=== PATIENT | female | born 1985 | race Caucasian/White ===

== ENCOUNTER 2019-09-13 09:18 | Emergency (ER) | payer OTHER ==
[2019-09-13] MEDS ORDERED: Ondansetron PF 4 MG/2 ML Vial ONE ×2 (10:06→12:24)
[2019-09-13] MEDS ORDERED: Morphine 2 MG/ML SYRINGE ONE ×2 (10:06→12:24)
[2019-09-13 10:12] LABS: Bilirubin Negative (Negative); Blood, Urine Trace (Negative); Clarity Turbid (Clear); Glucose, Urine (Dipstick) Normal (Negative); Leukocyte 25 Leu/uL (Negative); Nitrite Negative (Negative); Pregnancy Test - Urine (BHCG) Negative (Negative); Pregu Control Background? CLEAR/WHITE (CLR/WHITE); Pregu Control Bar Appear? YES (CONTROL BAR); Protein, Urine (Dipstick) Negative (Neg-Trace); Specific Gravity 1.013 (1.002-1.036); Squamous Epithelial 0-3 HPF (0-3); Urobilinogen Normal mg/dL (Less than 2); WBC/HPF 0-3 HPF (0-3)
[2019-09-13 10:13] LABS: Bacteria/HPF 1+ HPF (None Seen)
[2019-09-13 10:29] LABS: #Basophils 0.1 thou/uL (0.0-0.2); #Eosinphils 0.1 thou/uL (0.0-0.7); #Lymphocytes 2.3 thou/uL (1.20-3.40); #Monocytes 0.4 thou/uL (0.11-0.59); #Neutrophils 4.6 thou/uL (1.40-6.50); %Basophils 0.7 % (0.0-1.0); %Eosinophils 1.2 % (0.0-10.0); %Lymphocytes 30.4 % (21.0-51.0); %Monocytes 5.5 % (0.0-10.0); %Neutrophils 62.2 % (42.0-75.0); Hemoglobin 14.6 g/dL (12.0-16.0); Mean Corpuscular HGB CONC 32.1 g/dL (32.0-36.0); Mean Corpuscular Hemoglobin 27.6 pg (27.0-31.0); Mean Corpuscular Volume 86.1 fL (78.0-98.0); Mean Platelet Volume 8.4 fL (7.4-10.4); Platelet Count 284 thou/uL (130-400); RBC Distribution Width 11.3 % (11.5-14.5); White Blood Cell (WBC) Count 7.4 thou/uL (4.8-10.8)
--- NOTE | 2019-09-13 10:31 | RAD ---
Chest AP view INDICATION: Chest pain with nausea vomiting COMPARISON: October 08, 2016 FINDINGS: Lungs:The lungs are clear Cardiac silhouette:The cardiomediastinal silhouette appears within normal limits. Pulmonary vasculature:Normal Pleural spaces:No pleural effusion or pneumothorax is demonstrated. Upper abdomen:No abnormality seen. Osseous structures: No acute osseous abnormality. Additional findings:None. IMPRESSION: No acute cardiopulmonary abnormality.
[2019-09-13 10:47] LABS: ALT (SGPT) 12 U/L (8-55); AST (SGOT) 15 U/L (5-34); Albumin 4.3 g/dL (3.5-5.0); Alkaline Phosphatase 62 U/L (40-110); Anion Gap 12 mmol/L (10-20); BUN (Urea Nitrogen) 11 mg/dL (7.0-18.7); Bilirubin, Total 0.2 mg/dL (0.2-1.2); Calc. Creatinine Clearance 0 mL/min (70-130); Calcium 9.1 mg/dL (7.8-10.44); Carbon Dioxide 24 mmol/L (22-29); Chloride 106 mmol/L (98-107); Estimated GFR-MDRD 74; Globulin 3.5 g/dL (2.4-3.5); Glucose 89 mg/dL (70-105); Lipase 23 U/L (8-78); Potassium 3.7 mmol/L (3.5-5.1); Protein, Total 7.8 g/dL (6.0-8.3); Sodium 138 mmol/L (136-145)
--- NOTE | 2019-09-13 12:34 | CT ---
CT ABDOMEN WITH CONTRAST CT PELVIS WITH CONTRAST: DATE: 09/13/2019 HISTORY: 34-year-old female with right lower quadrant abdominal pain with nausea and emesis. TECHNIQUE: IV injection of iodinated contrast media: Administered Oral contrast media:Administered FINDINGS: Liver: Normal. Spleen: Normal. Pancreas: Normal. Adrenals: Normal. Kidneys: Normal. Ureters: No dilation. Bladder: No pathology identified. Abdominal aorta: No aneurysm or dissection. Small bowel: No dilation. Colon: No adjacent fat stranding. Appendix: Normal. Free air: None. Free fluid: None. There is a partially calcified approximately 1.5 x 1.5 x 1 cm exophytic, pedunculated well-circumscri bed mass protruding from the left anterior uterine fundus. IMPRESSION: 1. Normal appendix. 2. Incidental finding of small uterine leiomyoma. 3. Otherwise normal.
[2019-09-13] MEDS ORDERED: Iopamidol 370 76% 50 ML VIAL FS ONE (13:20)
[2019-09-13] MEDS ORDERED: ISOVUE-370 76%-LOCM 1 ML ONE (13:20)
--- NOTE | 2019-09-13 14:15 | ULT ---
Ultrasound of the pelvis: 09/13/2019 COMPARISON:09/02/2016 HISTORY:Pelvic pain TECHNIQUE: Multiplanar grayscale sonographic imaging of the pelvis obtained with transabdominal and e ndovaginal imaging. Ovaries are assessed with Doppler interrogation including color flow and spectral analysis. FINDINGS: The uterus measures7.3 x 3.9 x 4.8 cm and demonstrates an endometrial thickness of7 mm. The right ovary measures3.0 x 4.0 x 1.9 cm. The left ovary measures2.3 x 1.5 x 1.9 cm. Normal blood flow is noted within the ovaries. Ovaries can only be visualized on transabdominal imagi ng. There is a vague area of heterogeneous increased echogenicity within the mid body of the uterus anter iorly which measures approximately 1.9 x 1.9 x 1.6 cm, likely on the basis of a small uterine fibroid. CT examination performed 09/13/2019 demonstrates a partially calcified exophytic lesion emanating from the anterior aspect of the uterine fundus on the left measuring up to 1.8 cm. This is not well seen on this examination. IMPRESSION:No acute findings. Probable uterine fibroid.
[2019-09-13] MEDS ORDERED: Morphine 10 MG/ML VIAL ONE (15:09)
== END 2019-09-13 15:25 | disposition home or self-care (01) ==
LOC: ERS 09:18
DX: R10.31 Right lower quadrant pain (principal)
CPT/HCPCS: 71045; 74177; 76856; 80053; 81003; 81015; 81025; 83690; 85025; 87086; 96361; 96374; 96375; 96376; J2270; J2405; Q9966; Q9967